=== PATIENT | male | born 1975 | race Two or more races ===

== ENCOUNTER 2017-09-04 17:27 | Observation (INO) | payer OTHER ==
[~2017-09-04] VITALS: Ht 165.1 cm; Wt 75.0 kg
[2017-09-04 18:20] LABS: BASOPHILS # (AUTO) 0.03 x10^3/uL (0-0.1); BASOPHILS % (AUTO) 1 % (0-1); EOSINOPHILS # (AUTO) 0.06 x10^3/uL (0-0.4); EOSINOPHILS % (AUTO) 1 % (1-7); LYMPHOCYTES # (AUTO) 2.56 x10^3/uL (1-3.4); LYMPHOCYTES % (AUTO) 43 % (22-44); MD NO; MEAN CORPUSCULAR HEMOGLOBIN 29.7 pg (27.5-34.5); MEAN CORPUSCULAR HGB CONC 33.6 g/dL (33.2-36.2); MEAN CORPUSCULAR VOLUME 88.3 fL (81-97); MEAN PLATELET VOLUME 9.2 fL (7.4-10.4); MONOCYTES # (AUTO) 0.35 x10^3/uL (0.2-0.8); MONOCYTES % (AUTO) 6 % (2-9); NEUTROPHILS # (AUTO) 2.94 x10^3/uL (1.8-6.8); NEUTROPHILS % (AUTO) 49 % (42-75); PLATELET COUNT 279 x10^3/uL (130-400); RED BLOOD COUNT 4.95 x10^6/uL (4.38-5.82); RED CELL DISTRIBUTION WIDTH 14.4 % (9.4-14.8)
[2017-09-04 18:29] LABS: ACETAMINOPHEN < 2 mcg/mL (10-30); ALBUMIN 3.7 g/dL (3.4-5.0); ANION GAP 11 mmol/L (5-15); CALCIUM 8.4 mg/dL (8.5-10.1); CHLORIDE 103 mmol/L (98-107); CREATININE 0.95 mg/dL (0.7-1.3); SALICYLATE LEVEL < 1.7 mg/dL (2.8-20.0)
[2017-09-04] MEDS ORDERED: LORazepam 1MG TABLET ONE (19:21)
[2017-09-04] MEDS ORDERED: LORazepam 1MG TABLET PO ONE (19:30)
[2017-09-04 20:24] LABS: AMPHETAMINE SCREEN, URINE Negative (Negative); BARBITURATE SCREEN, URINE Negative (Negative); BENZODIAZEPINE SCREEN, URINE Negative (Negative); CANNABINOID SCREEN, URINE Negative (Negative); COCAINE SCREEN, URINE Negative (Negative); METHADONE SCREEN, URINE Negative (Negative); OPIATE SCREEN, URINE Negative (Negative)
[2017-09-04] MEDS ORDERED: DOCUSATE 100 MG CAPSULE PO PRN (20:30)
[2017-09-04] MEDS ORDERED: ONDANSETRON ODT 4 MG PO PRN (20:30)
[2017-09-04 22:12] VITALS: BP 115/77
[2017-09-05 07:41] VITALS: BP 129/79
[2017-09-05] MEDS: ACETAMINOPHEN 325 MG TABLET PO PRN (17:57)
[2017-09-05 20:11] VITALS: BP 114/82
[2017-09-06 08:51] VITALS: BP 105/68
[2017-09-06 20:21] VITALS: BP 94/54
[2017-09-06] MEDS: ACETAMINOPHEN 325 MG TABLET PO PRN (21:03)
[2017-09-07 08:03] VITALS: BP 95/66
[2017-09-07 19:52] VITALS: BP 116/80
[2017-09-08 08:23] VITALS: BP 104/69
== END 2017-09-08 15:15 | disposition home or self-care (01) ==
LOC: ED 18:22 → EDIP 19:07 → INTOOBSV 19:07 → 3E 22:09
PROVIDERS: ADMIT Internal Medicine; ATTEND Internal Medicine
DX: R45.851 Suicidal ideations (principal); Z87.891 Personal history of nicotine dependence; F10.10 Alcohol abuse, uncomplicated
CPT/HCPCS: 36415; 80048; 80307; 80329; 82040; 85025; 99285; G0378; G0480